=== PATIENT | male | born 1940 | race Caucasian/White ===

== ENCOUNTER 2019-12-25 20:34 | Inpatient (IN) ==
[2019-12-26] MEDS ORDERED: Naloxone 0.4 MG/ML INJ IVP PRN (00:17)
[2019-12-26 01:10] LABS: Hematocrit 22.5 % (37.5-50.1); Hemoglobin 7.4 g/dL (12.9-16.9); Mean Corpuscular HGB Conc 32.9 g/dL (31.6-35.5); Mean Corpuscular Hemoglobin 31.5 pg (28.0-33.3); Mean Corpuscular Volume 95.7 fL (83.0-100.0); Mean Platelet Volume 10.8 fL (9.4-12.4); Platelet Count 321 K/mcL (140-400); Red Blood Count 2.35 M/mcL (4.19-5.50); Red Cell Distribution Width 14.7 % (11.5-14.5); White Blood Count 7.7 K/mcL (4.3-11.1)
[2019-12-26 01:14] LABS: INR 1.3; Prothrombin Time 15.1 Seconds (9.4-12.1)
[2019-12-26 01:34] LABS: Alanine Aminotransferase 5 Units/L (7-52); Albumin 2.6 g/dL (3.5-5.7); Albumin/Globulin Ratio 1.2 (1.1-2.2); Alkaline Phosphatase 36 Units/L (34-104); Aspartate Amino Transferase 10 Units/L (13-39); BUN/Creatinine Ratio 28 (6-26); Bilirubin,Total 0.6 mg/dL (0.3-1.0); Blood Urea Nitrogen 32 mg/dL (8-23); Calcium 7.5 mg/dL (8.6-10.3); Carbon Dioxide 21 mEq/L (23-29); Chloride 113 mEq/L (98-107); Globulin 2.1 g/dL (2.4-3.5); Glucose 216 mg/dL (70-105); Magnesium 1.6 mg/dL (1.6-2.6); Osmolality,Calculated 303 (280-300); Phosphorous 2.9 mg/dL (2.7-4.5); Potassium 3.8 mEq/L (3.5-5.1); Sodium 140 mEq/L (136-145); Total Protein 4.7 g/dL (6.4-8.9); eGFR For African Americans > 60 (> 60); eGFR For Non-African Americans > 60 (> 60)
[2019-12-26 02:19] LABS: Troponin I < 0.03 ng/mL (< 0.04)
[2019-12-26] MEDS ORDERED: D5% in Water 1,000 ML IVC PRN (05:27)
[2019-12-26] MEDS ORDERED: Dextrose Gel 15 GM/37.5 ML TUBE PO PRN ×2 (05:27)
[2019-12-26] MEDS ORDERED: *HR* Dextrose 50 % in Water (Vial) 50 ML VIAL IVP PRN (05:27)
[2019-12-26] MEDS ORDERED: *HR* LORazepam 2 MG/ML VIAL IVP PRN ×3 (05:32)
[2019-12-26] MEDS: Insulin LISPRO 300 UNITS/3 ML VIAL SQ SCH ×3 (05:49→17:39)
[2019-12-26] MEDS: Pantoprazole 40 MG VIAL IVP SCH ×2 (06:53→17:30)
[2019-12-26] MEDS: Thiamine (B-1) 100 MG, Folic Acid 1 MG, MVI, adult with vitamin K 10 ML in 0.9 % Sodi... IVPB SCH (06:53)
[2019-12-26 07:06] LABS: Adenovirus Not Detected (Not Detect); Bordetella Pertussis Not Detected (Not Detect); Chlamydophila pneumoniae Not Detected (Not Detect); Coronavirus 229E Not Detected (Not Detect); Coronavirus HKU1 Not Detected (Not Detect); Coronavirus NL63 Not Detected (Not Detect); Coronavirus OC43 Not Detected (Not Detect); Human Metapneumovirus Not Detected (Not Detect); Human Rhinovirus/Enterovirus Not Detected (Not Detect); Influenza A Subtype 2009 H1 Not Detected (Not Detect); Influenza B Not Detected (Not Detect); Mycoplasma pneumoniae Not Detected (Not Detect); Parainfluenza Virus 1 Not Detected (Not Detect); Parainfluenza Virus 2 Not Detected (Not Detect); Parainfluenza Virus 3 Not Detected (Not Detect); Parainfluenza Virus 4 Not Detected (Not Detect); Respiratory Syncytial Virus Not Detected (Not Detect); SARS-CoV-2 Not Detected (Not Detect)
[2019-12-26 07:11] LABS: Hematocrit 21.3 % (37.5-50.1); Mean Corpuscular HGB Conc 32.9 g/dL (31.6-35.5); Mean Corpuscular Hemoglobin 31.3 pg (28.0-33.3); Mean Corpuscular Volume 95.1 fL (83.0-100.0); Mean Platelet Volume 10.9 fL (9.4-12.4); Platelet Count 307 K/mcL (140-400); Red Blood Count 2.24 M/mcL (4.19-5.50); Red Cell Distribution Width 15.5 % (11.5-14.5); White Blood Count 6.1 K/mcL (4.3-11.1)
[2019-12-26] MEDS ORDERED: 0.9 % Sodium Chloride 250 ML IVC SCH (08:00)
[2019-12-26] MEDS ORDERED: *HR* PHENYLEPHRINE 1,000 MCG/10 ML SYRINGE IVP ONE (12:36)
[2019-12-26] MEDS ORDERED: Ondansetron 4 MG/2 ML VIAL ONE (12:46)
[2019-12-26] MEDS ORDERED: *HR* Propofol 500 MG/50 ML BOTTLE IVP ONE (13:33)
[2019-12-26] MEDS ORDERED: Lidocaine -MPF 2% 5 ML VIAL SQ ONE (13:33)
[2019-12-26] MEDS ORDERED: Simethicone 80 MG TAB.CHEW PO PRN (16:33)
[2019-12-26 16:47] LABS: Hematocrit 22.4 % (37.5-50.1); Hemoglobin 7.2 g/dL (12.9-16.9)
[2019-12-26] MEDS: Pregabalin 50 MG CAPSULE PO SCH (20:21)
[2019-12-27] MEDS: Insulin LISPRO 300 UNITS/3 ML VIAL SQ SCH ×5 (00:24→20:59)
[2019-12-27 00:50] LABS: Hematocrit 21.1 % (37.5-50.1); Hemoglobin 6.9 g/dL (12.9-16.9)
[2019-12-27 01:09] LABS: BUN/Creatinine Ratio 23 (6-26); Blood Urea Nitrogen 25 mg/dL (8-23); Calcium 7.3 mg/dL (8.6-10.3); Carbon Dioxide 19 mEq/L (23-29); Chloride 111 mEq/L (98-107); Glucose 186 mg/dL (70-105); Osmolality,Calculated 293 (280-300); Potassium 3.6 mEq/L (3.5-5.1); Sodium 137 mEq/L (136-145); eGFR For African Americans > 60 (> 60); eGFR For Non-African Americans > 60 (> 60)
[2019-12-27] MEDS: Pantoprazole 40 MG in 0.9 % Sodium Chloride Mini Bag 100 ML IVC SCH ×4 (02:20→18:23)
[2019-12-27 08:28] LABS: Hematocrit 24.8 % (37.5-50.1); Hemoglobin 8.1 g/dL (12.9-16.9); Mean Corpuscular HGB Conc 32.7 g/dL (31.6-35.5); Mean Corpuscular Hemoglobin 31.3 pg (28.0-33.3); Mean Corpuscular Volume 95.8 fL (83.0-100.0); Mean Platelet Volume 10.9 fL (9.4-12.4); Platelet Count 218 K/mcL (140-400); Red Blood Count 2.59 M/mcL (4.19-5.50); Red Cell Distribution Width 17.3 % (11.5-14.5); White Blood Count 5.4 K/mcL (4.3-11.1)
[2019-12-27] MEDS ORDERED: amLODIPine 5 MG TABLET PO SCH (09:00)
[2019-12-27] MEDS ORDERED: Valsartan 80 MG TABLET PO SCH (09:00)
[2019-12-27] MEDS ORDERED: hydroCHLOROthiazide 25 MG TABLET PO SCH (09:00)
[2019-12-27] MEDS: Cholecalciferol (D-3) 1,000 UNIT (25MCG) TABLET PO SCH (09:35)
[2019-12-27] MEDS: BuPROPion SR (12 HR) 150 MG TABLET PO SCH (09:36)
[2019-12-27] MEDS: Pregabalin 50 MG CAPSULE PO SCH ×2 (09:36→21:02)
[2019-12-27] MEDS: Magnesium Oxide 400 MG TABLET PO SCH (09:36)
[2019-12-27 13:34] LABS: Hemoglobin 8.2 g/dL (12.9-16.9)
[2019-12-27 16:04] LABS: Hemoglobin 7.8 g/dL (12.9-16.9)
[2019-12-27] MEDS ORDERED: SODIUM CHLORIDE/NAHCO3/KCL/PEG 4,000 ML SOLN.RECON PO ONE (17:00)
[2019-12-27] MEDS: Thiamine (B-1) 100 MG, Folic Acid 1 MG, MVI, adult with vitamin K 10 ML in 0.9 % Sodi... IVPB SCH (18:17)
[2019-12-27 19:54] LABS: Hematocrit 26.2 % (37.5-50.1); Hemoglobin 8.5 g/dL (12.9-16.9)
[2019-12-28] MEDS: Pantoprazole 40 MG in 0.9 % Sodium Chloride Mini Bag 100 ML IVC SCH ×4 (00:34→12:32)
[2019-12-28 01:05] LABS: Hemoglobin 7.7 g/dL (12.9-16.9); Mean Corpuscular HGB Conc 32.1 g/dL (31.6-35.5); Mean Corpuscular Volume 96.8 fL (83.0-100.0); Mean Platelet Volume 11.2 fL (9.4-12.4); Platelet Count 213 K/mcL (140-400); Red Blood Count 2.48 M/mcL (4.19-5.50); Red Cell Distribution Width 17.5 % (11.5-14.5); White Blood Count 4.9 K/mcL (4.3-11.1)
[2019-12-28 01:27] LABS: BUN/Creatinine Ratio 18 (6-26); Blood Urea Nitrogen 18 mg/dL (8-23); Calcium 7.6 mg/dL (8.6-10.3); Carbon Dioxide 22 mEq/L (23-29); Chloride 110 mEq/L (98-107); Glucose 131 mg/dL (70-105); Osmolality,Calculated 292 (280-300); Potassium 3.7 mEq/L (3.5-5.1); Sodium 139 mEq/L (136-145); eGFR For African Americans > 60 (> 60); eGFR For Non-African Americans > 60 (> 60)
[2019-12-28 07:53] LABS: Hematocrit 24.8 % (37.5-50.1); Hemoglobin 8.1 g/dL (12.9-16.9)
[2019-12-28] MEDS: Cholecalciferol (D-3) 1,000 UNIT (25MCG) TABLET PO SCH (08:36)
[2019-12-28] MEDS: BuPROPion SR (12 HR) 150 MG TABLET PO SCH (08:41)
[2019-12-28] MEDS: Magnesium Oxide 400 MG TABLET PO SCH (08:41)
[2019-12-28] MEDS: Pregabalin 50 MG CAPSULE PO SCH ×2 (08:41→21:14)
[2019-12-28] MEDS: Insulin LISPRO 300 UNITS/3 ML VIAL SQ SCH ×4 (08:58→21:14)
[2019-12-28] MEDS ORDERED: Simethicone 40 MG/0.6 ML MLS IR ONE (12:42)
[2019-12-28] MEDS: 0.9 % Sodium Chloride 1,000 ML IVC SCH (13:05)
[2019-12-28] MEDS ORDERED: *HR* Propofol 500 MG/50 ML BOTTLE IVP ONE (13:33)
[2019-12-28] MEDS ORDERED: Lidocaine -MPF 4% 5 ML AMPUL TP ONE (13:33)
[2019-12-28] MEDS ORDERED: EPHEDrine 50 MG/ML VIAL IVP ONE (13:33)
[2019-12-28] MEDS: Sucralfate 1 GM TABLET PO SCH ×2 (18:04→21:14)
[2019-12-28] MEDS: Thiamine (B-1) 100 MG, Folic Acid 1 MG, MVI, adult with vitamin K 10 ML in 0.9 % Sodi... IVPB SCH (18:08)
[2019-12-28] MEDS ORDERED: Insulin DETEMIR 100 UNIT/ML X5UNITS SQ SCH (21:00)
[2019-12-29 04:14] LABS: Hematocrit 24.4 % (37.5-50.1); Hemoglobin 7.9 g/dL (12.9-16.9); Mean Corpuscular HGB Conc 32.4 g/dL (31.6-35.5); Mean Corpuscular Hemoglobin 30.9 pg (28.0-33.3); Mean Corpuscular Volume 95.3 fL (83.0-100.0); Mean Platelet Volume 11.2 fL (9.4-12.4); Platelet Count 221 K/mcL (140-400); Red Blood Count 2.56 M/mcL (4.19-5.50); White Blood Count 4.3 K/mcL (4.3-11.1)
[2019-12-29 04:32] LABS: Magnesium 1.8 mg/dL (1.6-2.6); Phosphorous 3.6 mg/dL (2.7-4.5)
[2019-12-29 04:35] LABS: BUN/Creatinine Ratio 11 (6-26); Blood Urea Nitrogen 10 mg/dL (8-23); Calcium 8.1 mg/dL (8.6-10.3); Carbon Dioxide 25 mEq/L (23-29); Chloride 109 mEq/L (98-107); Glucose 111 mg/dL (70-105); Osmolality,Calculated 290 (280-300); Potassium 3.4 mEq/L (3.5-5.1); Sodium 140 mEq/L (136-145); eGFR For African Americans > 60 (> 60); eGFR For Non-African Americans > 60 (> 60)
[2019-12-29 08:19] LABS: % Iron Saturation 16 % (20-55); Iron 34 mcg/dL (65-175); Transferrin 156 mg/dL (203-362)
[2019-12-29 08:36] LABS: Ferritin 207 ng/mL (20-250)
[2019-12-29 08:55] LABS: Folate > 22.3 ng/mL (3.0-16.0); Vitamin B12 972 pg/mL (250-1100)
[2019-12-29 10:06] LABS: Estimated Average Glucose 123 mg/dl
[2019-12-29] MEDS: Insulin LISPRO 300 UNITS/3 ML VIAL SQ SCH (10:51)
[2019-12-29] MEDS: Pregabalin 50 MG CAPSULE PO SCH (10:52)
[2019-12-29] MEDS: BuPROPion SR (12 HR) 150 MG TABLET PO SCH (10:52)
[2019-12-29] MEDS: Sucralfate 1 GM TABLET PO SCH ×2 (10:53→12:02)
[2019-12-29] MEDS: Magnesium Oxide 400 MG TABLET PO SCH (10:53)
[2019-12-29] MEDS: Cholecalciferol (D-3) 1,000 UNIT (25MCG) TABLET PO SCH (10:54)
[2019-12-29] MEDS: 0.9 % Sodium Chloride 1,000 ML IVC SCH (10:54)
[2019-12-29 11:16] VITALS: BP 120/64
== END 2019-12-29 13:34 | disposition home health service (06) | DRG 377 ==
LOC: 3ANU → SUATTDRO 22:55 → 3ANU 12-27 20:17
PROVIDERS: ADMIT Internal Medicine; ATTEND Family Medicine

== ENCOUNTER 2020-03-12 15:54 | Inpatient (IN) ==
[2020-03-12 16:37] LABS: Basophils % 0.4 %; Eosinophils # 0.1 K/mcL (0.0-0.6); Eosinophils % 1.6 %; Hematocrit 29.3 % (37.5-50.1); Hemoglobin 9.2 g/dL (12.9-16.9); Immature Granulocytes % 0.2 % (0-4); Lymphocytes # 1.6 K/mcL (0.6-4.6); Lymphocytes % 35.4 %; Mean Corpuscular HGB Conc 31.4 g/dL (31.6-35.5); Mean Corpuscular Hemoglobin 29.1 pg (28.0-33.3); Mean Corpuscular Volume 92.7 fL (83.0-100.0); Mean Platelet Volume 11.3 fL (9.4-12.4); Monocytes # 0.3 K/mcL (0.0-1.3); Monocytes % 7.2 %; Neutrophils # 2.5 K/mcL (1.6-8.9); Nucleated Red Blood Cells 0.4 /100 WBC (0); Platelet Count 274 K/mcL (140-400); Red Blood Count 3.16 M/mcL (4.19-5.50); Red Cell Distribution Width 16.3 % (11.5-14.5); Segmented Neutrophils % 55.2 %; White Blood Count 4.5 K/mcL (4.3-11.1)
[2020-03-12 16:41] LABS: INR 1.3; Prothrombin Time 14.5 Seconds (9.4-12.1)
[2020-03-12 16:55] LABS: Alanine Aminotransferase 6 Units/L (7-52); Albumin 3.4 g/dL (3.5-5.7); Albumin/Globulin Ratio 1.1 (1.1-2.2); Alkaline Phosphatase 52 Units/L (34-104); Aspartate Amino Transferase 11 Units/L (13-39); BUN/Creatinine Ratio 20 (6-26); Bilirubin,Direct 0.3 mg/dL (0.0-0.2); Bilirubin,Indirect 0.4 mg/dL (0.0-1.0); Bilirubin,Total 0.7 mg/dL (0.3-1.0); Blood Urea Nitrogen 19 mg/dL (8-23); C-Reactive Protein 5 mg/L (Less than 10); Calcium 8.7 mg/dL (8.6-10.3); Carbon Dioxide 23 mEq/L (23-29); Chloride 107 mEq/L (98-107); Ethanol < 10 mg/dL (Less than 10); Glucose 104 mg/dL (70-105); Magnesium 1.7 mg/dL (1.6-2.6); Osmolality,Calculated 285 (280-300); Potassium 3.6 mEq/L (3.5-5.1); Sodium 136 mEq/L (136-145); Total Protein 6.4 g/dL (6.4-8.9); eGFR For African Americans > 60 (> 60); eGFR For Non-African Americans > 60 (> 60)
[2020-03-12] MEDS ORDERED: Ondansetron 4 MG/2 ML VIAL IVP PRN (18:29)
[2020-03-12] MEDS ORDERED: Naloxone 0.4 MG/ML INJ IVP PRN (18:29)
[2020-03-12] MEDS ORDERED: 0.9 % Sodium Chloride 1,000 ML IVC SCH (18:30)
[2020-03-12] MEDS ORDERED: Vancomycin 1,000 MG, 0.9 % Sodium Chloride 1,000 ML IR ONE (18:32)
[2020-03-12] MEDS ORDERED: Dextrose Gel 15 GM/37.5 ML TUBE PO PRN ×2 (18:41)
[2020-03-12] MEDS ORDERED: *HR* Dextrose 50 % in Water (Vial) 50 ML VIAL IVP PRN (18:41)
[2020-03-12] MEDS ORDERED: D5% in Water 1,000 ML IVC PRN (18:41)
[2020-03-12 20:27] LABS: Estimated Average Glucose 160 mg/dl
[2020-03-12 22:09] LABS: Bilirubin,Urine Negative (Negative); Blood,Urine Negative (Negative); Clarity,Urine Clear (Clear); Color,Urine Light-Yellow (Yellow); Glucose,Urine (UA) Normal (Normal); Ketones,Urine Negative (Negative); Leukocyte Esterase,Urine Negative (Negative); Nitrite,Urine Negative (Negative); Protein,Urine Negative (Neg-Trace); Specific Gravity,Urine 1.014 (1.010-1.025); Urobilinogen,Urine Normal (Normal)
[2020-03-13] MEDS: Insulin LISPRO 300 UNITS/3 ML VIAL SQ SCH ×4 (00:11→18:03)
[2020-03-13 04:00] LABS: Basophils % 0.3 %; Eosinophils # 0.1 K/mcL (0.0-0.6); Eosinophils % 2.1 %; Hematocrit 29.1 % (37.5-50.1); Hemoglobin 8.9 g/dL (12.9-16.9); Immature Granulocytes % 0.3 % (0-4); Lymphocytes # 0.7 K/mcL (0.6-4.6); Lymphocytes % 16.9 %; Mean Corpuscular HGB Conc 30.6 g/dL (31.6-35.5); Mean Corpuscular Hemoglobin 28.6 pg (28.0-33.3); Mean Corpuscular Volume 93.6 fL (83.0-100.0); Mean Platelet Volume 11.2 fL (9.4-12.4); Monocytes # 0.3 K/mcL (0.0-1.3); Monocytes % 8.5 %; Neutrophils # 2.8 K/mcL (1.6-8.9); Platelet Count 246 K/mcL (140-400); Red Blood Count 3.11 M/mcL (4.19-5.50); Red Cell Distribution Width 16.7 % (11.5-14.5); Segmented Neutrophils % 71.9 %; White Blood Count 3.9 K/mcL (4.3-11.1)
[2020-03-13 04:17] LABS: BUN/Creatinine Ratio 16 (6-26); Blood Urea Nitrogen 17 mg/dL (8-23); Calcium 8.5 mg/dL (8.6-10.3); Carbon Dioxide 23 mEq/L (23-29); Chloride 110 mEq/L (98-107); Glucose 142 mg/dL (70-105); Magnesium 1.8 mg/dL (1.6-2.6); Osmolality,Calculated 292 (280-300); Potassium 3.3 mEq/L (3.5-5.1); Sodium 139 mEq/L (136-145); eGFR For African Americans > 60 (> 60); eGFR For Non-African Americans > 60 (> 60)
[2020-03-13] MEDS ORDERED: Vancomycin 1,500 MG/265 ML IV.SOLN IVPB SCH ×2 (06:00→18:00)
[2020-03-13] MEDS ORDERED: Bacitracin 50,000 UNIT, Sodium Chloride IRRigation 1,000 ML IR ONE ×2 (06:00→13:34)
[2020-03-13] MEDS ORDERED: *HR* Heparin 5,000 UNIT/ML VIAL SQ SCH (06:00)
[2020-03-13] MEDS ORDERED: Aspirin Enteric Coated 81 MG Tablet PO SCH (09:00)
[2020-03-13] MEDS ORDERED: Bupivacaine-MPF 0.25% 10 ML VIAL ONE (12:09)
[2020-03-13] MEDS ORDERED: Bupivacaine/EPI 1:200k 0.25% 50 ML VIAL ONE (12:09)
[2020-03-13] MEDS ORDERED: *HR* FentaNYL (PF) 100 MCG/2 ML VIAL ONE (12:29)
[2020-03-13] MEDS ORDERED: Lidocaine -MPF 2% 2 ML VIAL ONE (12:30)
[2020-03-13] MEDS ORDERED: *HR* Dextrose 50 % in Water (Vial) 50 ML VIAL IVP PRN (13:34)
[2020-03-13] MEDS ORDERED: Naloxone 0.4 MG/ML INJ IVP PRN (13:34)
[2020-03-13] MEDS ORDERED: Ondansetron 4 MG/2 ML VIAL IVP PRN (13:34)
[2020-03-13] MEDS ORDERED: D5% in Water 1,000 ML IVC PRN (13:34)
[2020-03-13] MEDS ORDERED: 0.9 % Sodium Chloride 1,000 ML IVC SCH (13:34)
[2020-03-13] MEDS ORDERED: Dextrose Gel 15 GM/37.5 ML TUBE PO PRN ×2 (13:34)
[2020-03-13] MEDS: Piperacillin/Tazobactam 3.375 GM in 0.9 % Sodium Chloride Mini Bag 100 ML IVPB SCH (17:32)
[2020-03-13] MEDS: *HR* Heparin 5,000 UNIT/ML VIAL SQ SCH (17:34)
[2020-03-14] MEDS: Piperacillin/Tazobactam 3.375 GM in 0.9 % Sodium Chloride Mini Bag 100 ML IVPB SCH ×3 (00:31→16:56)
[2020-03-14] MEDS: Insulin LISPRO 300 UNITS/3 ML VIAL SQ SCH ×4 (00:31→17:00)
[2020-03-14] MEDS: Acetaminophen 325 MG TABLET PO PRN (01:44)
[2020-03-14 02:39] LABS: Basophils % 0.3 %; Eosinophils # 0.1 K/mcL (0.0-0.6); Eosinophils % 2.6 %; Hematocrit 28.7 % (37.5-50.1); Hemoglobin 8.9 g/dL (12.9-16.9); Immature Granulocytes % 0.3 % (0-4); Lymphocytes # 0.8 K/mcL (0.6-4.6); Lymphocytes % 21.5 %; Mean Corpuscular Hemoglobin 28.8 pg (28.0-33.3); Mean Corpuscular Volume 92.9 fL (83.0-100.0); Mean Platelet Volume 11.7 fL (9.4-12.4); Monocytes # 0.4 K/mcL (0.0-1.3); Neutrophils # 2.6 K/mcL (1.6-8.9); Platelet Count 239 K/mcL (140-400); Red Blood Count 3.09 M/mcL (4.19-5.50); Red Cell Distribution Width 16.4 % (11.5-14.5); Segmented Neutrophils % 66.3 %; White Blood Count 3.9 K/mcL (4.3-11.1)
[2020-03-14 02:53] LABS: BUN/Creatinine Ratio 15 (6-26); Blood Urea Nitrogen 17 mg/dL (8-23); Calcium 8.2 mg/dL (8.6-10.3); Carbon Dioxide 24 mEq/L (23-29); Chloride 106 mEq/L (98-107); Glucose 123 mg/dL (70-105); Osmolality,Calculated 287 (280-300); Potassium 3.7 mEq/L (3.5-5.1); Sodium 137 mEq/L (136-145); eGFR For African Americans > 60 (> 60); eGFR For Non-African Americans 60 (> 60)
[2020-03-14] MEDS: Vancomycin 1,500 MG/265 ML IV.SOLN IVPB SCH (06:06)
[2020-03-14] MEDS: *HR* Heparin 5,000 UNIT/ML VIAL SQ SCH ×2 (06:06→16:57)
[2020-03-14] MEDS ORDERED: Loratadine 10 MG TABLET PO PRN (08:23)
[2020-03-14] MEDS ORDERED: polyethylene glycoL 3350 17 GM POWD.PACK PO PRN (08:23)
[2020-03-14] MEDS ORDERED: Simethicone 80 MG TAB.CHEW PO PRN (08:23)
[2020-03-14] MEDS: Thiamine (B-1) 100 MG TABLET PO SCH (09:27)
[2020-03-14] MEDS: Aspirin Enteric Coated 81 MG Tablet PO SCH (09:28)
[2020-03-14] MEDS: Multivit/Ca/Min/Fe/FA 1 TAB TABLET PO SCH (09:28)
[2020-03-14] MEDS: Valsartan 80 MG TABLET PO SCH (09:28)
[2020-03-14] MEDS: Folic Acid 1 MG TABLET PO SCH (09:28)
[2020-03-14] MEDS: BuPROPion SR (12 HR) 150 MG TABLET PO SCH (09:29)
[2020-03-14] MEDS: Sucralfate 1 GM TABLET PO SCH ×3 (12:56→21:22)
[2020-03-14] MEDS: QUEtiapine Fumarate 25 MG TABLET PO SCH (21:22)
[2020-03-15] MEDS: Insulin LISPRO 300 UNITS/3 ML VIAL SQ SCH ×5 (00:32→23:48)
[2020-03-15] MEDS: Piperacillin/Tazobactam 3.375 GM in 0.9 % Sodium Chloride Mini Bag 100 ML IVPB SCH ×4 (00:34→23:47)
[2020-03-15 05:17] LABS: Basophils % 0.4 %; Eosinophils # 0.1 K/mcL (0.0-0.6); Eosinophils % 5.3 %; Hematocrit 27.1 % (37.5-50.1); Hemoglobin 8.7 g/dL (12.9-16.9); Lymphocytes % 41.9 %; Mean Corpuscular HGB Conc 32.1 g/dL (31.6-35.5); Mean Corpuscular Hemoglobin 29.9 pg (28.0-33.3); Mean Corpuscular Volume 93.1 fL (83.0-100.0); Mean Platelet Volume 11.5 fL (9.4-12.4); Monocytes # 0.3 K/mcL (0.0-1.3); Monocytes % 13.4 %; Platelet Count 211 K/mcL (140-400); Red Blood Count 2.91 M/mcL (4.19-5.50); Red Cell Distribution Width 16.6 % (11.5-14.5); White Blood Count 2.5 K/mcL (4.3-11.1)
[2020-03-15 05:30] LABS: BUN/Creatinine Ratio 15 (6-26); Blood Urea Nitrogen 16 mg/dL (8-23); Calcium 8.2 mg/dL (8.6-10.3); Carbon Dioxide 24 mEq/L (23-29); Chloride 110 mEq/L (98-107); Glucose 120 mg/dL (70-105); Osmolality,Calculated 290 (280-300); Potassium 3.4 mEq/L (3.5-5.1); Sodium 139 mEq/L (136-145); eGFR For African Americans > 60 (> 60); eGFR For Non-African Americans > 60 (> 60)
[2020-03-15] MEDS: Vancomycin 1,500 MG/265 ML IV.SOLN IVPB SCH (05:37)
[2020-03-15] MEDS: *HR* Heparin 5,000 UNIT/ML VIAL SQ SCH ×2 (05:37→16:31)
[2020-03-15] MEDS: Vancomycin 1,750 MG/517.5 ML IV.SOLN IVPB SCH (06:04)
[2020-03-15] MEDS: Aspirin Enteric Coated 81 MG Tablet PO SCH (09:53)
[2020-03-15] MEDS: Acetaminophen 325 MG TABLET PO PRN (09:54)
[2020-03-15] MEDS: Sucralfate 1 GM TABLET PO SCH ×4 (09:54→20:50)
[2020-03-15] MEDS: Thiamine (B-1) 100 MG TABLET PO SCH (09:54)
[2020-03-15] MEDS: BuPROPion SR (12 HR) 150 MG TABLET PO SCH (09:54)
[2020-03-15] MEDS: Folic Acid 1 MG TABLET PO SCH (09:54)
[2020-03-15] MEDS: Multivit/Ca/Min/Fe/FA 1 TAB TABLET PO SCH (09:54)
[2020-03-15] MEDS: Valsartan 80 MG TABLET PO SCH (09:54)
[2020-03-15] MEDS: QUEtiapine Fumarate 25 MG TABLET PO SCH (20:50)
[2020-03-16 02:00] LABS: Basophils % 0.3 %; Eosinophils # 0.2 K/mcL (0.0-0.6); Eosinophils % 6.3 %; Hematocrit 26.9 % (37.5-50.1); Hemoglobin 8.5 g/dL (12.9-16.9); Immature Granulocytes % 0.3 % (0-4); Lymphocytes # 0.9 K/mcL (0.6-4.6); Lymphocytes % 26.2 %; Mean Corpuscular HGB Conc 31.6 g/dL (31.6-35.5); Mean Corpuscular Hemoglobin 28.6 pg (28.0-33.3); Mean Corpuscular Volume 90.6 fL (83.0-100.0); Mean Platelet Volume 11.7 fL (9.4-12.4); Monocytes # 0.3 K/mcL (0.0-1.3); Monocytes % 9.3 %; Neutrophils # 1.9 K/mcL (1.6-8.9); Platelet Count 207 K/mcL (140-400); Red Blood Count 2.97 M/mcL (4.19-5.50); Red Cell Distribution Width 16.4 % (11.5-14.5); Segmented Neutrophils % 57.6 %; White Blood Count 3.3 K/mcL (4.3-11.1)
[2020-03-16 02:19] LABS: BUN/Creatinine Ratio 15 (6-26); Blood Urea Nitrogen 17 mg/dL (8-23); Calcium 7.9 mg/dL (8.6-10.3); Carbon Dioxide 23 mEq/L (23-29); Chloride 105 mEq/L (98-107); Glucose 183 mg/dL (70-105); Osmolality,Calculated 282 (280-300); Potassium 3.6 mEq/L (3.5-5.1); Sodium 133 mEq/L (136-145); eGFR For African Americans > 60 (> 60); eGFR For Non-African Americans 60 (> 60)
[2020-03-16] MEDS: Vancomycin 1,750 MG/517.5 ML IV.SOLN IVPB SCH (05:28)
[2020-03-16] MEDS: *HR* Heparin 5,000 UNIT/ML VIAL SQ SCH ×2 (05:28→18:19)
[2020-03-16] MEDS: Insulin LISPRO 300 UNITS/3 ML VIAL SQ SCH ×4 (05:29→23:42)
[2020-03-16] MEDS: Piperacillin/Tazobactam 3.375 GM in 0.9 % Sodium Chloride Mini Bag 100 ML IVPB SCH ×3 (09:15→23:42)
[2020-03-16] MEDS: Multivit/Ca/Min/Fe/FA 1 TAB TABLET PO SCH (09:16)
[2020-03-16] MEDS: BuPROPion SR (12 HR) 150 MG TABLET PO SCH (09:16)
[2020-03-16] MEDS: Folic Acid 1 MG TABLET PO SCH (09:16)
[2020-03-16] MEDS: Thiamine (B-1) 100 MG TABLET PO SCH (09:16)
[2020-03-16] MEDS: Sucralfate 1 GM TABLET PO SCH ×4 (09:17→20:34)
[2020-03-16] MEDS: Aspirin Enteric Coated 81 MG Tablet PO SCH (09:17)
[2020-03-16] MEDS: Valsartan 80 MG TABLET PO SCH (09:17)
[2020-03-16] MEDS: QUEtiapine Fumarate 25 MG TABLET PO SCH (20:34)
[2020-03-17 05:07] LABS: Eosinophils # 0.3 K/mcL (0.0-0.6); Eosinophils % 7.1 %; Hematocrit 28.9 % (37.5-50.1); Hemoglobin 9.5 g/dL (12.9-16.9); Immature Granulocytes % 0.3 % (0-4); Lymphocytes # 1.2 K/mcL (0.6-4.6); Lymphocytes % 32.7 %; Mean Corpuscular HGB Conc 32.9 g/dL (31.6-35.5); Mean Corpuscular Hemoglobin 30.4 pg (28.0-33.3); Mean Corpuscular Volume 92.3 fL (83.0-100.0); Mean Platelet Volume 11.3 fL (9.4-12.4); Monocytes # 0.3 K/mcL (0.0-1.3); Monocytes % 9.7 %; Neutrophils # 1.8 K/mcL (1.6-8.9); Platelet Count 198 K/mcL (140-400); Red Blood Count 3.13 M/mcL (4.19-5.50); Red Cell Distribution Width 16.5 % (11.5-14.5); Segmented Neutrophils % 50.2 %; White Blood Count 3.5 K/mcL (4.3-11.1)
[2020-03-17 05:31] LABS: BUN/Creatinine Ratio 16 (6-26); Blood Urea Nitrogen 16 mg/dL (8-23); Calcium 8.4 mg/dL (8.6-10.3); Carbon Dioxide 25 mEq/L (23-29); Chloride 107 mEq/L (98-107); Glucose 137 mg/dL (70-105); Osmolality,Calculated 287 (280-300); Potassium 3.8 mEq/L (3.5-5.1); Sodium 137 mEq/L (136-145); eGFR For African Americans > 60 (> 60); eGFR For Non-African Americans > 60 (> 60)
[2020-03-17] MEDS: Insulin LISPRO 300 UNITS/3 ML VIAL SQ SCH ×4 (05:53→23:19)
[2020-03-17] MEDS: *HR* Heparin 5,000 UNIT/ML VIAL SQ SCH ×2 (05:54→16:20)
[2020-03-17] MEDS: Vancomycin 2,000 MG/520 ML IV.SOLN IVPB SCH (06:06)
[2020-03-17] MEDS: Valsartan 80 MG TABLET PO SCH (08:03)
[2020-03-17] MEDS: Sucralfate 1 GM TABLET PO SCH ×4 (08:05→20:12)
[2020-03-17] MEDS: Thiamine (B-1) 100 MG TABLET PO SCH (08:05)
[2020-03-17] MEDS: Aspirin Enteric Coated 81 MG Tablet PO SCH (08:05)
[2020-03-17] MEDS: BuPROPion SR (12 HR) 150 MG TABLET PO SCH (08:05)
[2020-03-17] MEDS: Folic Acid 1 MG TABLET PO SCH (08:05)
[2020-03-17] MEDS: Multivit/Ca/Min/Fe/FA 1 TAB TABLET PO SCH (08:05)
[2020-03-17] MEDS: Piperacillin/Tazobactam 3.375 GM in 0.9 % Sodium Chloride Mini Bag 100 ML IVPB SCH ×3 (08:06→23:18)
[2020-03-17] MEDS: QUEtiapine Fumarate 25 MG TABLET PO SCH (20:12)
[2020-03-17] MEDS: Acetaminophen 325 MG TABLET PO PRN (20:14)
[2020-03-18] MEDS: Insulin LISPRO 300 UNITS/3 ML VIAL SQ SCH ×3 (05:53→20:22)
[2020-03-18] MEDS: *HR* Heparin 5,000 UNIT/ML VIAL SQ SCH ×2 (05:53→17:27)
[2020-03-18] MEDS: Vancomycin 2,000 MG/520 ML IV.SOLN IVPB SCH (05:53)
[2020-03-18 07:30] VITALS: BP 108/71
[2020-03-18] MEDS: Sucralfate 1 GM TABLET PO SCH ×4 (07:43→20:24)
[2020-03-18] MEDS: BuPROPion SR (12 HR) 150 MG TABLET PO SCH (07:43)
[2020-03-18] MEDS: Thiamine (B-1) 100 MG TABLET PO SCH (07:43)
[2020-03-18] MEDS: Valsartan 80 MG TABLET PO SCH (07:44)
[2020-03-18] MEDS: Aspirin Enteric Coated 81 MG Tablet PO SCH (07:44)
[2020-03-18] MEDS: Multivit/Ca/Min/Fe/FA 1 TAB TABLET PO SCH (07:44)
[2020-03-18] MEDS: Folic Acid 1 MG TABLET PO SCH (07:44)
[2020-03-18] MEDS: Piperacillin/Tazobactam 3.375 GM in 0.9 % Sodium Chloride Mini Bag 100 ML IVPB SCH ×2 (07:44→17:26)
[2020-03-18] MEDS: QUEtiapine Fumarate 25 MG TABLET PO SCH (20:24)
== END 2020-03-18 22:10 | DRG 617 ==
LOC: 3NENU 15:54 → EMEROOARM 15:54 → SUATTDRO 17:53 → 3NENU 18:41
PROVIDERS: ADMIT Student in an Organized Health Care Education/Training Program; ATTEND Internal Medicine